=== PATIENT | male | born 1950 | race Caucasian/White ===

== ENCOUNTER → 2019-09-21 17:34 | Outpatient (BNVA) | payer MEDICARE, SELFPAY | PROVIDERS: Family Provider Nurse Practitioner Family; PCP Nurse Practitioner Family; Visit Provider Nurse Practitioner Family | DX: N39.0 Urinary tract infection, site not specified (principal); R10.9 Unspecified abdominal pain; R39.9 Unspecified symptoms and signs involving the genitourinary system | CPT/HCPCS: 81001; 81003; 87086 ==